=== PATIENT | female | born 1950 | race Caucasian/White ===

== ENCOUNTER 2023-03-28 08:49 | Day surgery (SDC) | payer MEDICARE, BC ==
[2023-03-28] MEDS ORDERED: Propofol 200 MG/20 ML SDV IV ONE (08:50)
[2023-03-28] MEDS ORDERED: Ondansetron 4 MG/2 ML SDV IVPUSH ONE (08:50)
[2023-03-28] MEDS ORDERED: Scopalamine 1mg/3day Transdermal Patch TOP ONE (08:50)
[2023-03-28] MEDS ORDERED: Sugammadex Sodium 200 MG/2 ML VIAL IV ONE (08:50)
[2023-03-28] MEDS ORDERED: Rocuronium 100 MG/10 ML MDV IV ONE (08:50)
[2023-03-28] MEDS ORDERED: fentaNYL 100 MCG/2 ML SDV IV ONE (08:50)
[2023-03-28] MEDS ORDERED: Lactated Ringers 1,000 ML IV ONE (08:50)
[2023-03-28] MEDS ORDERED: HYDROmorphone 2 MG/ML SDV IV ONE (08:50)
[2023-03-28] MEDS ORDERED: Labetalol 100 MG/20 ML MDV IV ONE (08:50)
[2023-03-28] MEDS ORDERED: Midazolam 1 MG/ML 2 ML SDV IV ONE (08:50)
[2023-03-28] MEDS ORDERED: Lactated Ringers 1,000 ML IV SCH (09:30)
[2023-03-28] MEDS ORDERED: ceFAZolin 2 GM Vial IVPUSH ONE (09:30)
[2023-03-28] MEDS ORDERED: Sodium Chloride 0.9% 10 ML Syringe FLUSH PRN (09:30)
[2023-03-28] MEDS ORDERED: Bupivacaine 0.5%/EPINEPHrine 1:200,000 10 ML SDV INJECT ONE (11:17)
[2023-03-28] MEDS ORDERED: Acetaminophen/HYDROcodone 325-5 MG Tab PO ONE (12:55)
== END 2023-03-28 14:57 | disposition home or self-care (01) ==
LOC: FB.SDS 08:49
PROVIDERS: ATTEND Surgery
DX: K80.10 Calculus of gallbladder with chronic cholecystitis without obstruction (principal); K82.8 Other specified diseases of gallbladder; J43.9 Emphysema, unspecified; Z79.82 Long term (current) use of aspirin; Z79.899 Other long term (current) drug therapy; Z88.8 Allergy status to other drugs, medicaments and biological substances; Z91.048 Other nonmedicinal substance allergy status
CPT/HCPCS: 00790; 88304; 99100; A9270-GY; J0690; J1170; J1921; J2250; J2405; J2704; J3010; J3490; J7120